=== PATIENT | female | born 1955 | race Caucasian/White ===

== ENCOUNTER → 2016-08-18 | Outpatient (CLI) | payer OTHER ==
[~2016-08-18] MED LIST: ESTR1TAB3 PO; PROG100C7 PO
--- NOTE | 2016-08-18 15:54 | KCIC ---
PROCEDURE Renal ultrasound. HISTORY One year follow-up right renal cystic lesion. TECHNIQUE Renal ultrasound was performed. COMPARISON August 25, 2015. FINDINGS Right kidney measures at least 9.5 centimeters in length and the left 10.0 centimeters. Interpolar cyst in the right kidney measures up to 2.2 centimeters in size, similar in measurement to prior CT. No solid mass is identified. There is cortical thinning, mild. Bladder is unremarkable. Both urine jets are documented. Aorta and IVC are obscured by bowel gas. IMPRESSION Stable simple cyst in right kidney. Electronically signed by: Clarence Elena MD (Aug 18, 2016 15:53:05)
== END | disposition home or self-care (01) ==
LOC: KCIC US 14:51
PROVIDERS: ATTEND Urology
DX: N28.1 Cyst of kidney, acquired (principal)
CPT/HCPCS: 76770

== ENCOUNTER → 2018-08-08 | Outpatient (CLI) | payer MEDICARE, OTHER ==
[~2018-08-08] MED LIST changes: -ESTR1TAB3 PO; +PREMPRO 0.3 MG1 EACH PO; +PROG100C15 PO; -PROG100C7 PO
--- NOTE | 2018-08-08 10:39 | KCIC ---
Indication: Right renal cyst follow-up TECHNIQUE: Ultrasound of the kidneys COMPARISON: Ultrasound from 08/18/2016 FINDINGS: No aortic aneurysm. IVC within normal limits. Right kidney measures 9.5 x 4.7 x 4.7 cm without hydronephrosis. 2.5 x 2.0 x 2.0 cm cyst is seen in the right kidney, previously measuring 2.2 x 1.8 x 2.0 cm cm with faint internal septation without vascularity. Bilateral ureteral jets are visualized in the bladder. Bladder within normal limits. Left kidney measures 10.1 x 4.1 x 4.6 cm without hydronephrosis. IMPRESSION: 1. Minimal Interval increase in size of right renal cyst most likely minimally complicated cyst with internal septation. Follow-up ultrasound in 6 months recommended. 2. Slightly atrophic right kidney. Electronically signed by: iRck Batista DO (08/08/2018 10:36 AM) [facility]
== END | disposition home or self-care (01) ==
LOC: KCIC US 07:55
PROVIDERS: ATTEND Urology
DX: N28.1 Cyst of kidney, acquired (principal); N26.1 Atrophy of kidney (terminal)
CPT/HCPCS: 76770

== ENCOUNTER → 2019-02-28 | Outpatient (CLI) | payer MEDICARE, OTHER ==
--- NOTE | 2019-02-28 12:15 | RAD ---
EXAM: Renal sonogram. HISTORY: Renal cyst follow-up. TECHNIQUE: Sonographic imaging of the kidneys and bladder was performed. COMPARISON: 08/08/2018. FINDINGS: The right kidney measures 10.2 cm [id number]. The left kidney measures 9.2 cm [id number]. There is a complex right renal cyst with slight irregular borders and internal echoes measuring 2.6 x 2.1 x 1.7 cm. There is no hydronephrosis. The bladder is unremarkable. The ureteral jets are both seen. The inferior vena cava is patent. The aorta is normal in caliber. IMPRESSION: 1. No significant change in a 2.6 cm complex right ovarian cyst with slightly irregular borders and internal echoes, allowing for differences in imaging and measurement technique. 2. Otherwise, unremarkable renal sonogram. Electronically signed by: Chanell Alejandra MD (02/28/2019 12:12 PM) [id number]
== END | disposition home or self-care (01) ==
LOC: US 10:18
PROVIDERS: ATTEND Family Medicine
DX: N28.1 Cyst of kidney, acquired (principal); N83.291 Other ovarian cyst, right side
CPT/HCPCS: 76770

== ENCOUNTER → 2021-04-21 | Outpatient (CLI) | payer MEDICARE, OTHER ==
--- NOTE | 2021-04-21 11:04 | KCIC ---
Renal ultrasound 04/21/2021 INDICATION: Follow-up renal mass COMPARISON STUDY: Renal ultrasound February 28, 2019 Discussion: Ultrasound of the kidneys was performed. Static images are submitted to PACS. Right kidney measures 9.0 x 3.9 x 4.7 cm. There is a new, simple appearing cyst in superior right kid richelle measuring 1 cm in diameter. In the inferior right kidney there is a hypoechoic cyst, with somewha t irregular border and mild areas of internal echogenicity. This measures 1.4 x 2.4 x 1.7 cm (prior m easurement 1.4 x 1.7 x 2.4 cm). Mild cortical thinning appears to be present throughout the right kid richelle. Left kidney measures 10.6 x 3.8 x 4.7 cm. Diffuse renal cortical thickening noted on the left. No foc al renal lesion is seen on the left. No evidence of nephrolithiasis or hydronephrosis is seen involving either kidney. Limited evaluation of the bladder is unremarkable. IMPRESSION: 2 right renal cysts. The simple, more superior cyst is new, and measures approximately 1 cm. The previously demonstrated somewhat complex cyst in the inferior kidney is unchanged in size me asuring up to 2.4 cm in diameter. Electronically signed by: Faraz Mckeon MD (04/21/2021 11:02 AM) [id number]
--- NOTE | 2021-04-21 14:15 | KCIC ---
EXAM: Supine AP view of the abdomen DATE: 04/21/2021 10:08 AM INDICATION: Reason: Hx. urinary calculus. / Spl. Instructions: Hx. stone 10 yrs. ago, not sure which side. Yearly exam. / History: However KV COMPARISON: No Prior FINDINGS: No abnormal small or large bowel dilatation. Moderate to large volume colonic stool content. No abn ormal soft tissue mass effect. No suspicious calcifications are seen. Evaluation for free intraperi toneal gas is limited on this supine exam. IMPRESSION: 1. No evidence for bowel obstruction. 2. Moderate to large volume colonic stool content. Electronically signed by: Shen Fatima MD (04/21/2021 2:12 PM) [id number]
== END ==
LOC: KCIC US 09:38
PROVIDERS: ATTEND Urology
DX: N28.1 Cyst of kidney, acquired (principal); N28.89 Other specified disorders of kidney and ureter; K59.00 Constipation, unspecified; Z87.442 Personal history of urinary calculi
CPT/HCPCS: 74018; 76770